=== PATIENT | male | born 1965 | race Caucasian/White ===

== ENCOUNTER 2019-04-15 13:41 | Emergency (ER) | payer BC ==
[2019-04-15 17:23] VITALS: BP 136/89
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
== END 2019-04-15 17:22 | disposition home or self-care (01) ==
LOC: ED 13:41
DX: M25.551 Pain in right hip (principal); R20.2 Paresthesia of skin; M51.37 Other intervertebral disc degeneration, lumbosacral region; M48.07 Spinal stenosis, lumbosacral region; M16.11 Unilateral primary osteoarthritis, right hip; N40.0 Benign prostatic hyperplasia without lower urinary tract symptoms; K40.90 Unilateral inguinal hernia, without obstruction or gangrene, not specified as recurrent; F17.210 Nicotine dependence, cigarettes, uncomplicated
CPT/HCPCS: 72131; 72192; 99282